=== PATIENT | female | born 1990 | race Caucasian/White ===

== ENCOUNTER 2016-06-15 17:46 | Emergency (ER) | payer SELFPAY ==
[2016-06-15 18:05] VITALS: BP 145/107; TEMP 97.8
[2016-06-15] MEDS ORDERED: HYDROcodone 5MG/APAP 325MG 1 EA TAB PO ONE (18:59)
--- NOTE | 2016-06-15 19:02 | ED.PDOC ---
History of Present Illness - General Chief Complaint: ENT Problem Stated Complaint: ear pain, sore throat Time Seen by Provider: 06/15/16 18:53 Source: patient Exam Limitations: no limitations - History of Present Illness Initial Comments: ACUTE ONSET OF A SORE THROAT AND BILATERAL EAR PAIN LAST NIGHT. DENIES ANY FEVER. Timing/Duration: gradual EENT Location: ear (R), ear (L), throat Prearrival Treatment: no prearrival treatment, over the counter meds Improving Factors: nothing Worsening Factors: nothing Associated Symptoms: denies symptoms Allergies/Adverse Reactions: Allergies Penicillins Allergy (Unverified 01/09/14 19:50) Home Medications: Ambulatory Orders Ativan 01/09/14 Ciprofloxacin [Cipro] 500 mg PO BID #20 tab 01/09/14 Phenazopyridine HCl [Pyridium] 200 mg PO TID #6 tab 01/09/14 Azithromycin 250 mg PO DAILY #6 tab 06/15/16 Tramadol HCl 50 mg PO Q6HRS #20 tab 06/15/16 Review of Systems - Review of Systems Constitutional: States: malaise. Denies: chills, fever EENTM: States: ear pain, throat pain. Denies: eye pain, blurred vision, mouth pain, mouth swelling Respiratory: States: no symptoms reported Cardiology: States: no symptoms reported Gastrointestinal/Abdominal: States: no symptoms reported Genitourinary: States: no symptoms reported Musculoskeletal: States: no symptoms reported Skin: States: no symptoms reported Neurological: States: no symptoms reported Endocrine: States: no symptoms reported Hematologic/Lymphatic: States: no symptoms reported All other Systems: Reviewed and Negative Past Medical History (General) - Patient Medical History Hx Seizures: No Hx Stroke: No Hx Dementia: No Hx Asthma: No Hx of COPD: No Hx Cardiac Disorders: No Hx Congestive Heart Failure: No Hx Pacemaker: No Hx Hypertension: Yes Hx Thyroid Disease: No Hx Diabetes: No Hx Gastroesophageal Reflux: No Hx Renal Disease: No Hx Cancer: No Hx of HIV: No Hx Hepatitis C: No Hx MRSA: No - Vaccination History Hx Influenza Vaccination: Yes - Social History Hx Tobacco Use: Yes Hx Alcohol Use: No Hx Substance Use: No - Female History Hx Last Menstrual Period: 12/18/13 - Triage Comment ED Triage Comment: Pt states she has sore throat and difficulty swallowing Family Medical History - Family History Mother Family History: Unknown Living Status: Still Living Hx Family Asthma: No Hx Family Congestive Heart Failure: No Hx Family Hypertension: Yes Hx Family Stroke: No Hx Cardiac Disease: No Physical Exam - Physical Exam General Appearance: Alert, Anxious Eye Exam: bilateral normal Ear Exam: bilateral ear: TM red Nasal Exam: normal inspection Throat Exam: normal mouth inspection, pharynx tenderness Neck: non-tender, full range of motion, supple, normal inspection Cardiovascular/Respiratory: regular rate, rhythm, no M/R/G, normal peripheral pulses, no JVD, normal breath sounds, no respiratory distress Abdominal Exam: non-tender, no organomegaly, no hernia Neurologic: pharmacy data analyst II-XII nml as tested, no motor/sensory deficits, alert, oriented x 3 Skin Exam: normal color Progress - Progress Progress: 06/15/16 19:03 RSS AND INFLUENZA SCREEN ARE NEGATIVE. Departure - Departure Clinical Impression: Otitis media of both ears Qualifiers: Otitis media type: unspecified Time of Disposition: 19:04 Disposition: Discharge to Home or Self Care Condition: Good Departure Forms: ED Discharge - Pt. Copy, Patient Portal Self Enrollment Diet: resume usual diet Activity: increase activity as tolerated Prescriptions: Tramadol HCl 50 mg PO Q6HRS #20 tab Azithromycin 250 mg PO DAILY #6 tab Home Medications: Ambulatory Orders Ativan 01/09/14 Ciprofloxacin [Cipro] 500 mg PO BID #20 tab 01/09/14 Phenazopyridine HCl [Pyridium] 200 mg PO TID #6 tab 01/09/14 Azithromycin 250 mg PO DAILY #6 tab 06/15/16 Tramadol HCl 50 mg PO Q6HRS #20 tab 06/15/16
[2016-06-15 19:18] VITALS: O2SAT 97
== END 2016-06-15 19:17 | disposition home or self-care (01) ==
LOC: ER 17:46
DX: H66.93 Otitis media, unspecified, bilateral (principal); I10 Essential (primary) hypertension; Z82.49 Family history of ischemic heart disease and other diseases of the circulatory system; Z87.891 Personal history of nicotine dependence; Z79.899 Other long term (current) drug therapy; Z88.0 Allergy status to penicillin

== ENCOUNTER 2017-05-15 15:11 | Emergency (ER) | payer SELFPAY ==
--- NOTE | 2017-05-15 15:55 | ED.PDOC ---
History of Present Illness - General Chief Complaint: Cardiovascular Problem Stated Complaint: hypertension and nausea Time Seen by Provider: 05/15/17 15:45 Source: patient, RN notes reviewed, Vital Signs reviewed, family - History of Present Illness Initial Comments: 27 YEAR OLD PRESENTS WITH SEVERE HEADACHE NAUSEA SINCE THIS MORNING SHE APPRENTLY HAD A HEAD INJURY LAST EVENING SHE BUMPED INTO A METAL PIPE SHE WAS DIZZY ? LOC GOT UP WENT BACK HOME TOOK A IBUPROFEN FOR HEADACHE SHE HAS HISTOR OF INDUCED HYPERTENSION Allergies/Adverse Reactions: Allergies Penicillins Allergy (Verified 05/15/17 16:18) Home Medications: Ambulatory Orders Ativan 01/09/14 Ciprofloxacin [Cipro] 500 mg PO BID #20 tab 01/09/14 Phenazopyridine HCl [Pyridium] 200 mg PO TID #6 tab 01/09/14 Azithromycin 250 mg PO DAILY #6 tab 06/15/16 Tramadol HCl 50 mg PO Q6HRS #20 tab 06/15/16 Past Medical History (General) - Patient Medical History Hx Seizures: No Hx Stroke: No Hx Dementia: No Hx Asthma: No Hx of COPD: No Hx Cardiac Disorders: No Hx Congestive Heart Failure: No Hx Pacemaker: No Hx Hypertension: Yes Hx Thyroid Disease: No Hx Diabetes: No Hx Gastroesophageal Reflux: No Hx Renal Disease: No Hx Cancer: No Hx of HIV: No Hx Hepatitis C: No Hx MRSA: No - Vaccination History Hx Influenza Vaccination: Yes - Social History Hx Tobacco Use: Yes Hx Alcohol Use: No Hx Substance Use: No - Female History Hx Last Menstrual Period: 12/18/13 Family Medical History - Family History Mother Family History: Unknown Living Status: Still Living Hx Family Asthma: No Hx Family Congestive Heart Failure: No Hx Family Hypertension: Yes Hx Family Stroke: No Hx Cardiac Disease: No Physical Exam - Physical Exam General Appearance: Alert Eye Exam: bilateral normal Ears, Nose, Throat: hearing grossly normal, normal ENT inspection, normal pharynx Neck: non-tender, full range of motion, supple Respiratory: chest non-tender, lungs clear, normal breath sounds, no respiratory distress, no accessory muscle use Cardiovascular/Chest: normal peripheral pulses, regular rate, rhythm, no edema, no gallop, no JVD, no murmur Gastrointestinal/Abdominal: normal bowel sounds, non tender, soft, no organomegaly, no pulsatile mass Back Exam: normal inspection, no CVA tenderness, no vertebral tenderness Neurologic: aligner II-XII nml as tested, no motor/sensory deficits Lymphatic: no adenopathy Progress - Results/Orders Results/Orders: ct head neg Departure - Departure Clinical Impression: Hypertension, Head injury Time of Disposition: 17:13 Disposition: Discharge to Home or Self Care Condition: Fair Departure Forms: ED Discharge - Pt. Copy, Patient Portal Self Enrollment Instructions: DI for Chest Pain Diet: low salt diet Activity: walking as tolerated Home Medications: Ambulatory Orders Ativan 01/09/14 Ciprofloxacin [Cipro] 500 mg PO BID #20 tab 01/09/14 Phenazopyridine HCl [Pyridium] 200 mg PO TID #6 tab 01/09/14 Azithromycin 250 mg PO DAILY #6 tab 06/15/16 Tramadol HCl 50 mg PO Q6HRS #20 tab 06/15/16
[2017-05-15] MEDS ORDERED: ONDANSETRON INJ 4 MG/2 ML VIAL IV ONE (15:56)
[2017-05-15] MEDS ORDERED: LABETALOL INJ 5 MG/ML VIAL IV ONE (15:56)
[2017-05-15] MEDS ORDERED: KETOROLAC TROMETHAMINE INJ 30 MG/ML VIAL IV ONE (15:57)
[2017-05-15 16:00] VITALS: TEMP 98.6; O2SAT 97
[2017-05-15] MEDS ORDERED: diphenhydrAMINE HCL 50 MG/ML VIAL IV ONE (16:26)
[2017-05-15] MEDS ORDERED: diphenhydrAMINE HCL 50 MG/ML VIAL IV PRN (16:30)
--- NOTE | 2017-05-15 16:46 | CT ---
Procedure: CT HEAD WITHOUT IV CONTRAST Exam Date: 05/15/2017 Ordering Provider: Amina Robert Clinical Indication: SEVERE CADE Comparison: 03/20/2010 Technique: Using a helical scanner, sequential axial imaging of the brain was obtained without the administration of intravenous contrast. The exam was obtained from the skull base to vertex. This exam was performed according to our departmental dose optimization program which includes use of automated exposure control, adjustment of the mA and/or kV according to patient size and/or use of iterative reconstruction technique. Findings: Ventricular size and configuration are normal. There is no midline shift or hydrocephalus. There is no acute intracranial hemorrhage or mass effect. There is no acute infarct. Cortical mcbride matter, subcortical white matter, and periventricular white matter have normal appearance. The calvarium is intact. There is no fracture. There is no lytic or sclerotic lesion. The visualized paranasal sinuses and mastoid air cells are unremarkable. IMPRESSION: No acute intracranial abnormality demonstrated. Electronically signed by: Albert Copeland MD 05/15/2017 4:45 PM [facility]
[2017-05-15 17:36] VITALS: BP 142/93
== END 2017-05-15 17:35 | disposition home or self-care (01) ==
LOC: ER 15:11
DX: S09.90XA Unspecified injury of head, initial encounter (principal); I10 Essential (primary) hypertension; W22.8XXA Striking against or struck by other objects, initial encounter; Y92.9 Unspecified place or not applicable
CPT/HCPCS: 36415; 70450; 80048; 85025; J1200; J1885; J2405

== ENCOUNTER 2017-07-12 13:57 | Emergency (ER) | payer BC ==
[2017-07-12 14:14] VITALS: TEMP 98.5
[2017-07-12] MEDS ORDERED: ONDANSETRON ODT 8 MG TAB SL ONE (14:30)
[2017-07-12] MEDS ORDERED: ALUMINUM & MAGNESIUM HYDROXIDE 30 ML UD PO ONE (14:30)
--- NOTE | 2017-07-12 14:59 | RAD ---
EXAM DESCRIPTION: Abdomen Series CLINICAL HISTORY: 27 years Female, r abd pain 2 weeks COMPARISON: None. FINDINGS: Two views of the abdomen and a single view of the chest demonstrates no free abdominal air or basilar lung disease. A small air-fluid level within the stomach is noted with a nonobstructive bowel gas pattern and small normal amount of stool. Small pelvic phleboliths are noted. The bony spine and pelvis is unremarkable. No additional abnormalities noted. IMPRESSION: Normal abdomen two views with chest one view. Electronically signed by: Scott Galvin MD 07/12/2017 2:58 PM GYMNASTIC COACH
--- NOTE | 2017-07-12 17:12 | CT ---
EXAM DESCRIPTION: Abdomen/Pelvis w/Contrast CLINICAL HISTORY: 27 years Female, rt sided abd pain, n/v 2 weeks COMPARISON: 06 April 2007 TECHNIQUE: Transaxial images were obtained with intravenous contrast medium without oral contrast media. Sagittal and coronal reconstruction was performed.This exam was performed according to our departmental dose-optimization program, which includes automated exposure control, adjustment of the mA and/or kV according to patient size and/or use of iterative reconstruction technique. FINDINGS: The lung bases are clear. The liver and spleen are unremarkable. No biliary ductal dilatation is observed. The gallbladder is normal in appearance. No adrenal masses are detected. Imaging of the kidneys reveals no evidence of hydronephrosis mass cyst or calcification. The pancreas is normal in appearance. The appendix is identified and is normal in appearance. No free fluid is observed. The uterus and adnexa are unremarkable. No inguinal region abnormality is seen. No bone abnormality is seen. No bowel abnormality is detected. IMPRESSION: Normal computerized axial tomography of the abdomen and pelvis. Electronically signed by: Dimitrios Chavez MD 07/12/2017 5:11 PM TRANSFORMATION COACH
--- NOTE | 2017-07-12 17:21 | ED.PDOC ---
History of Present Illness - General Chief Complaint: Abdominal Pain Stated Complaint: ABD PAIN Time Seen by Provider: 07/12/17 14:02 Source: patient Exam Limitations: no limitations - History of Present Illness Initial Comments: The patient's 27-year-old female presenting to the emergency room secondary to right-sided abdominal pain that is primarily right mid to upper abdominal pain. Pain is worse with oral intake. She does have some nausea but has not been throwing up. She is not having any constipation. No definite heartburn issues. She still has her gallbladder. Mild symptoms started possibly a month ago. Symptoms are getting significantly worse over the last week. Timing/Duration: unsure Severity: moderate Improving Factors: nothing Worsening Factors: eating Associated Symptoms: loss of appetite, nausea/vomiting Allergies/Adverse Reactions: Allergies Amoxicillin Allergy (Verified 07/12/17 14:12) Ketorolac Tromethamine [From Toradol] Allergy (Verified 07/12/17 14:12) Penicillins Allergy (Verified 05/15/17 16:18) Home Medications: Ambulatory Orders Ativan 01/09/14 Esomeprazole Magnesium [Nexium] 40 mg PO DAILY #30 cap 07/12/17 Ondansetron [Zofran Odt] 4 mg PO Q4H PRN #10 tab 07/12/17 Sucralfate Tab [Carafate Tab] 1 gm PO QID #120 tab 07/12/17 Review of Systems - Review of Systems Constitutional: States: malaise EENTM: States: no symptoms reported Respiratory: States: no symptoms reported Cardiology: States: no symptoms reported Gastrointestinal/Abdominal: States: abdominal pain, nausea Genitourinary: States: no symptoms reported Musculoskeletal: States: no symptoms reported Skin: States: no symptoms reported Neurological: States: no symptoms reported Endocrine: States: no symptoms reported All other Systems: No Change from Baseline Past Medical History (General) - Patient Medical History Hx Seizures: No Hx Stroke: No Hx Dementia: No Hx Asthma: No Hx of COPD: No Hx Cardiac Disorders: No Hx Congestive Heart Failure: No Hx Pacemaker: No Hx Hypertension: Yes Hx Thyroid Disease: No Hx Diabetes: No Hx Gastroesophageal Reflux: No Hx Renal Disease: No Hx Cancer: No Hx of HIV: No Hx Hepatitis C: No Hx MRSA: No - Vaccination History Hx Tetanus, Diphtheria Vaccination: No Hx Influenza Vaccination: No Hx Pneumococcal Vaccination: No Immunizations Up to Date: No - Social History Hx Tobacco Use: Yes Hx Alcohol Use: No Hx Substance Use: No Hx Depression: No - Female History Hx Last Menstrual Period: 12/18/13 Family Medical History - Family History Mother Family History: Unknown Living Status: Still Living Hx Family Asthma: No Hx Family Congestive Heart Failure: No Hx Family Hypertension: Yes Hx Family Stroke: No Hx Cardiac Disease: No Physical Exam - Physical Exam General Appearance: Alert, Comfortable, No apparent distress Eye Exam: bilateral normal Ears, Nose, Throat: hearing grossly normal, normal ENT inspection, normal pharynx Neck: full range of motion, supple, normal inspection Respiratory: lungs clear, normal breath sounds, no respiratory distress, no accessory muscle use Cardiovascular/Chest: normal peripheral pulses, regular rate, rhythm, no edema Peripheral Pulses: radial,right: 2+, radial,left: 2+, dorsalis pedis,right: 2+, dorsalis pedis,left: 2+ Gastrointestinal/Abdominal: non tender, other - ild discomfort to the right upper quadrant and epigastric area Rectal Exam: deferred Back Exam: normal inspection, no CVA tenderness Extremity: normal range of motion, non-tender, normal inspection, no pedal edema , normal capillary refill Neurologic: family specialist II-XII nml as tested, alert, normal mood/affect, oriented x 3 Skin Exam: normal color Comments: Vital Signs - 24 hr 07/12/17 14:08 Temperature 98.5 F Pulse Rate [ 74 MONITOR] Respiratory 18 Rate Blood Pressure 150/95 [RA] O2 Sat by Pulse 98 Oximetry Progress - Progress Progress: 07/12/17 17:22 the patient's 27-year-old female presenting with right upper and epigastric abdominal pain for significant period of time. Laboratory work is reassuring. CT scan is reassuring. The patient is going to be treated empirically with Carafate and Nexium for the next month. She will also have some Zofran for as needed use for any nausea. She needs to keep herself well-hydrated. She needs to take small meals that are low in fat. She needs to avoid spicy foods. If the patient is slowly improving over the next week then she can continue with this course. She does need to follow up with her primary care doctor before the weekend for reevaluation. If she is significantly worsening at any time then she needs to return for a repeat evaluation. If she is not really improving over time then she does need to seek out a general surgeon for a more directed evaluation of her gallbladder. ER warnings were given for any worsening. - Results/Orders Results/Orders: Laboratory Tests 07/12/17 07/12/17 07/12/17 14:15 15:06 15:06 WBC 10.5 RBC 5.18 Hgb 15.9 Hct 47.0 MCV 90.8 MCH 30.7 MCHC 33.9 RDW 13.8 Plt Count 163 MPV 12.1 H Absolute Neuts (auto) 7.20 H Absolute Lymphs (auto) 2.50 Absolute Monos (auto) 0.50 Absolute Eos (auto) 0.30 Absolute Basos (auto) 0.10 Neutrophils % 68.0 Lymphocytes % 23.5 Monocytes % 4.8 Eosinophils % 2.7 Basophils % 1.0 Sodium 142 Potassium 3.9 Chloride 108 Carbon Dioxide 23 Anion Gap 14.9 BUN 14 Creatinine 0.86 BUN/Creatinine Ratio 16.3 Random Glucose 117 H Serum Osmolality 284.6 Lactic Acid Calcium 9.4 Total Bilirubin 0.2 AST 20 ALT 26 Alkaline Phosphatase 74 Creatine Kinase 90 CK-MB (CK-2) 1.0 CK-MB (CK-2) % Not Reportable Troponin I < 0.02 Serum Total Protein 7.7 Albumin 4.4 Globulin 3.3 Albumin/Globulin Ratio 1.3 Amylase 39 Lipase 28 Urine Color Yellow Urine Appearance Cloudy Urine pH 7.0 Ur Specific [place] 1.020 Urine Protein Negative Urine Glucose (UA) Negative Urine Ketones Negative Urine Blood Negative Urine Nitrite Negative Urine Bilirubin Negative Urine Urobilinogen 0.2 Ur Leukocyte Esterase Negative Urine RBC 0 Urine WBC 0 Ur Epithelial Cells 1-3 Amorphous Sediment 3+ Urine Bacteria 0 Urine HCG, Qual 07/12/17 07/12/17 15:06 15:06 WBC RBC Hgb Hct MCV MCH MCHC RDW Plt Count MPV Absolute Neuts (auto) Absolute Lymphs (auto) Absolute Monos (auto) Absolute Eos (auto) Absolute Basos (auto) Neutrophils % Lymphocytes % Monocytes % Eosinophils % Basophils % Sodium Potassium Chloride Carbon Dioxide Anion Gap BUN Creatinine BUN/Creatinine Ratio Random Glucose Serum Osmolality Lactic Acid 1.3 Calcium Total Bilirubin AST ALT Alkaline Phosphatase Creatine Kinase CK-MB (CK-2) CK-MB (CK-2) % Troponin I Serum Total Protein Albumin Globulin Albumin/Globulin Ratio Amylase Lipase Urine Color Urine Appearance Urine pH Ur Specific [place] Urine Protein Urine Glucose (UA) Urine Ketones Urine Blood Urine Nitrite Urine Bilirubin Urine Urobilinogen Ur Leukocyte Esterase Urine RBC Urine WBC Ur Epithelial Cells Amorphous Sediment Urine Bacteria Urine HCG, Qual Negative CT scan of abdomen and pelvis is essentially benign. No evidence of appendicitis or acute cholecystitis. No obstruction. No perforation. Departure - Departure Clinical Impression: Abdominal pain Qualifiers: Abdominal location: right upper quadrant Qualified Code(s): R10.11 - Right upper quadrant pain Disposition: Discharge to Home or Self Care Condition: Fair Departure Forms: ED Discharge - Pt. Copy, Patient Portal Self Enrollment Diet: bland diet Activity: increase activity as tolerated Referrals: Willian Golden MD [Primary Care Provider] - 1-5 Days Prescriptions: Esomeprazole Magnesium [Nexium] 40 mg PO DAILY #30 cap Ondansetron [Zofran Odt] 4 mg PO Q4H PRN #10 tab PRN Reason: Vomiting Sucralfate Tab [Carafate Tab] 1 gm PO QID #120 tab Home Medications: Ambulatory Orders Ativan 01/09/14 Esomeprazole Magnesium [Nexium] 40 mg PO DAILY #30 cap 07/12/17 Ondansetron [Zofran Odt] 4 mg PO Q4H PRN #10 tab 07/12/17 Sucralfate Tab [Carafate Tab] 1 gm PO QID #120 tab 07/12/17 Additional Instructions: the patient's 27-year-old female presenting with right upper and epigastric abdominal pain for significant period of time. Laboratory work is reassuring. CT scan is reassuring. The patient is going to be treated empirically with Carafate and Nexium for the next month. She will also have some Zofran for as needed use for any nausea. She needs to keep herself well-hydrated. She needs to take small meals that are low in fat. She needs to avoid spicy foods. If the patient is slowly improving over the next week then she can continue with this course. She does need to follow up with her primary care doctor before the weekend for reevaluation. If she is significantly worsening at any time then she needs to return for a repeat evaluation. If she is not really improving over time then she does need to seek out a general surgeon for a more directed evaluation of her gallbladder. ER warnings were given for any worsening.
[2017-07-12 17:38] VITALS: BP 149/103; O2SAT 96
== END 2017-07-12 17:38 | disposition home or self-care (01) ==
LOC: ER 13:57
DX: R10.11 Right upper quadrant pain (principal); I10 Essential (primary) hypertension

== ENCOUNTER 2018-04-13 17:08 | Emergency (ER) | payer BC ==
[2018-04-13 17:21] VITALS: TEMP 97.2
--- NOTE | 2018-04-13 17:27 | ED.PDOC ---
History of Present Illness - General Chief Complaint: Abdominal Pain Stated Complaint: LLQ abdominal pain Time Seen by Provider: 04/13/18 17:21 Information Source: patient Exam Limitations: no limitations - History of Present Illness Initial Comments: PT STATES SHE HAD R-SIDED ABD PAIN YESTERDAY, WHICH RESOLVED. TODAY IT IS LLQ PAIN WHICH RADIATES TO THE BACK. POS NAUSEA BUT NO EMESIS. PAIN WORSE W/ WALKING AND LAYING SUPINE. LMP OCT 1; SHE STATES SHE IS 1 WK OVERDUE. NO SIMILAR PRIOR SX. NO DYSURIA. NO VAGINAL D/C OR BLOOD. H/O TUBAL IGATION. Abdominal Pain Onset Location: LLQ, suprapubic Pain Radiation: back Quality: severe, steady Timing/Duration: 4-6 hours Improving Factors: nothing Worsening Factors: nothing Associated Symptoms: back pain, nausea/vomiting Review of Systems - Review of Systems Constitutional: Denies: chills, diaphoresis, fever EENTM: States: no symptoms reported Respiratory: States: no symptoms reported Cardiology: States: no symptoms reported Gastrointestinal/Abdominal: States: abdominal pain, nausea. Denies: constipation, diarrhea, vomiting Genitourinary: Denies: discharge, dysuria, frequency, hematuria Musculoskeletal: States: no symptoms reported Skin: States: no symptoms reported Neurological: States: no symptoms reported Endocrine: States: no symptoms reported Hematologic/Lymphatic: States: no symptoms reported All other Systems: Reviewed and Negative Past Medical History (General) - Patient Medical History Hx Seizures: No Hx Stroke: No Hx Dementia: No Hx Asthma: No Hx of COPD: No Hx Cardiac Disorders: No Hx Congestive Heart Failure: No Hx Pacemaker: No Hx Hypertension: Yes Hx Thyroid Disease: No Hx Diabetes: No Hx Gastroesophageal Reflux: No Hx Renal Disease: No Hx Cancer: No Hx of HIV: No Hx Hepatitis C: No Hx MRSA: No Surgical History: cholecystectomy - Vaccination History Hx Tetanus, Diphtheria Vaccination: No Hx Influenza Vaccination: No Hx Pneumococcal Vaccination: No - Social History Hx Tobacco Use: Yes Hx Alcohol Use: No Hx Substance Use: No Hx Depression: No - Female History Patient is a Female of Child Bearing Age (10 -59 yrs old): Yes Hx Last Menstrual Period: 12/18/13 Family Medical History - Family History Mother Family History: Unknown Living Status: Still Living Hx Family Asthma: No Hx Family Congestive Heart Failure: No Hx Family Hypertension: Yes Hx Family Stroke: No Hx Cardiac Disease: No Physical Exam - Physical Exam General Appearance: Alert, Obvious distress Eyes, Ears, Nose, Throat Exam: PERRL/EOMI, normal ENT inspection Neck: full range of motion, normal inspection Respiratory: lungs clear, normal breath sounds Cardiovascular/Chest: regular rate, rhythm, no murmur Peripheral Pulses: No deficit Gastrointestinal/Abdominal: normal bowel sounds, soft, no organomegaly, no pulsatile mass, tenderness - LLQ > SUPRAPUBIC. Back Exam: normal inspection, no vertebral tenderness, CVA tenderness (L) Extremity: normal range of motion, normal inspection Neurologic: no motor/sensory deficits, alert, normal mood/affect Skin Exam: normal color, warm/dry Lymphatic: no adenopathy Progress - Progress Progress: 04/13/18 18:08 PT UNABLE TO VOID FOR U/A THUS GIVING 1L NS BOLUS. NEG W/U: CBC, CMP, SERUM PREG NEG. CT NEG FOR NEPHROLITHIASIS. UA PENDING. NAUSEA AND PAIN CONTROLLED W/ ZOFRAN AND MORPHINE. 04/13/18 18:17 I SPOKE WITH RADIOLOGIST AND HE SAID THERE IS NO EVIDENCE OF NEPHROLITHIASIS OR OVARIAN CYST/RUPTURED CYST. 04/13/18 18:50 UA NEG. ETX OF PT'S LLQ PAIN UNCLEAR. WILL TX NAUSEA WITH ZOFRAN RX AND PAIN WITH CODEINE. PT HAS AN OB. F/U W/ OB FOR FURTHER TESTWORK IF PAIN DOESN'T IMPROVE. Departure - Departure Clinical Impression: Abdominal pain, LLQ, Nausea, Left flank pain Disposition: Discharge to Home or Self Care Condition: Good Departure Forms: ED Discharge - Pt. Copy, Patient Portal Self Enrollment Instructions: DI for Abdominal Pain-Adult Diet: resume usual diet Activity: increase activity as tolerated Referrals: Willian Golden MD [Primary Care Provider] - 1-2 Weeks Prescriptions: Acetaminophen W/ Codeine [Tylenol W/ CODEINE #3] 1 ea PO Q6H #15 Ondansetron [Zofran Odt] 4 mg PO Q8H PRN #15 tab PRN Reason: Nausea Home Medications: Ambulatory Orders Acetaminophen W/ Codeine [Tylenol W/ CODEINE #3] 1 ea PO Q6H #15 04/13/18 Lorazepam [Ativan] 0.5 mg PO PRN 04/13/18 Ondansetron [Zofran Odt] 4 mg PO Q8H PRN #15 tab 04/13/18 Additional Instructions: Please see your OB for further testwork if the symptoms aren't improving.
[2018-04-13] MEDS ORDERED: SODIUM CHLORIDE 0.9% 1000ML 1,000 ML IVS ONE (17:33)
[2018-04-13] MEDS ORDERED: ONDANSETRON INJ 4 MG/2 ML VIAL IV ONE (17:35)
[2018-04-13] MEDS ORDERED: MORPHINE SULFATE INJ 10 MG/ML VIAL IV ONE (17:35)
--- NOTE | 2018-04-13 18:02 | CT ---
EXAM DESCRIPTION: Abdoment/Pelvis w/o Contrast CLINICAL HISTORY: LLQ PAIN, POSSIBLE OVARIAN CYST VS NEPHROLITHIASIS COMPARISON: None Available TECHNIQUE: Contiguous axial images of the abdomen and pelvis were obtained after the administration of intravenous contrast followed by reconstruction images.This exam was performed according to our departmental dose-optimization program, which includes automated exposure control, adjustment of the mA and/or kV according to patient size and/or use of iterative reconstruction technique. FINDINGS: The liver, spleen, pancreas and kidneys are within normal limits. There is no hydronephrosis. The gallbladder is surgically absent. Adrenal glands are within normal limits. Aorta is normal in caliber and tapering. No significant free fluid. No free air. No bowel obstruction. There is no stranding of the mesenteric fat. The appendix appears normal. No evidence of periappendiceal inflammation. IMPRESSION: No acute intra-abdominal abnormality without Electronically signed by: Mando Nelson 04/13/2018 6:00 PM [employer]
[2018-04-13 19:14] VITALS: BP 132/76; O2SAT 98
== END 2018-04-13 19:05 | disposition home or self-care (01) ==
LOC: ER 17:08
DX: R10.32 Left lower quadrant pain (principal); R11.0 Nausea; I10 Essential (primary) hypertension; Z87.891 Personal history of nicotine dependence
CPT/HCPCS: 74176; 80053; 81001; 84703; 85025; J2270; J2405; J7030

== ENCOUNTER → 2019-10-12 | Outpatient (CLI) | payer OTHER | LOC: LAB.O 13:37 | PROVIDERS: ATTEND Obstetrics & Gynecology | DX: Z01.812 Encounter for preprocedural laboratory examination (principal) ==